=== PATIENT | male | born 1965 | race Caucasian/White ===

== ENCOUNTER 2021-07-17 17:41 | Emergency (ER) | payer MEDICAID ==
[~2021-07-17] VITALS: Ht 188 cm; Wt 90.7 kg
[2021-07-17 17:41] VITALS: BP_SYST 139
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
--- NOTE | 2021-07-17 17:41 | NUR ---
BROUGHT IN BY [facility], PLACED IN BED #1 AND TRIAGED. REPORT GIVEN TO MANISHA
--- NOTE | 2021-07-17 17:42 | NUR ---
Dr Quiñones at bedside to evaluate patient
--- NOTE | 2021-07-17 17:44 | NUR ---
Patient to ER bed to [facility] for evaluation. Side rails up. Addendum: 07/17/21 at 1759 by [email or web address] Time of arrival 1325
--- NOTE | 2021-07-17 17:57 | NUR ---
Oxygen per nasal cannula applied re low [id number] 2 L applied after which saturation improved to 94%.
--- NOTE | 2021-07-17 18:14 | NUR ---
Patient resting in bed; in no acute distress. VSS. Patient talkkin on phone. Will continue to monitor.
--- NOTE | 2021-07-17 19:07 | NUR ---
Report given to Mallory TIMMONS
--- NOTE | 2021-07-17 19:07 | NUR ---
RECIEVED REPORT FROM DAY SHIFT RN.
--- NOTE | 2021-07-17 19:10 | NUR ---
PT LYING IN BED WITH EYES OPEN. AO X4. EQUAL RISE AND FALL OF CHEST. NO ACUTE DISTRESS AT THIS TIME. DENIES ANY FURTHER NEEDS AT THIS TIME. ALL VS ARE STABLE.
[2021-07-17] MEDS ORDERED: NALO4SPR NS (19:37)
--- NOTE | 2021-07-17 20:00 | NUR ---
PT AMBULATORY WITHOUT DIFFICULTY, GAIT SMOOTH AND COORDINATED.
--- NOTE | 2021-07-17 20:07 | NUR ---
Patient given written and verbal discharge instructions and verbalizes understanding. ER MD discussed with patient the results and treatment provided. Patient in stable condition. ID arm band removed. IO removed intact and dressing applied, no active bleeding. Rx of NARCAN given. Patient educated on pain management and to follow up with PMD. Pain Scale 0/10. Opportunity for questions provided and answered. Medication side effect fact sheet provided. REFUSED DISCHARGE VITAL SIGNS.
[2021-07-17 21:07] VITALS: BP_SYST 120
== END 2021-07-17 20:07 | disposition home or self-care (01) ==
LOC: SED 17:41
DX: T40.1X1A Poisoning by heroin, accidental (unintentional), initial encounter (principal); F12.90 Cannabis use, unspecified, uncomplicated; F15.90 Other stimulant use, unspecified, uncomplicated; Z79.899 Other long term (current) drug therapy; Y92.89 Other specified places as the place of occurrence of the external cause
CPT/HCPCS: 93005; 99283